=== PATIENT | male | born 1995 | race Hispanic/Latino ===

== ENCOUNTER 2018-07-20 11:52 | Emergency (ER) | payer SELFPAY ==
[2018-07-20] MEDS ORDERED: Proparacaine 0.5% Opth 15 ML BOT ONE (12:07)
[2018-07-20] MEDS ORDERED: Fluorescein Opthalmic Strip ONE ×2 (12:07→12:08)
[2018-07-20] MEDS ORDERED: Adacel (T-DAP) 0.5 ML SYRINGE ONE (12:38)
== END 2018-07-20 13:14 | disposition home or self-care (01) ==
LOC: ERS 11:52
DX: T26.12XA Burn of cornea and conjunctival sac, left eye, initial encounter (principal); T26.11XA Burn of cornea and conjunctival sac, right eye, initial encounter; F17.210 Nicotine dependence, cigarettes, uncomplicated; W22.8XXA Striking against or struck by other objects, initial encounter; Y92.69 Other specified industrial and construction area as the place of occurrence of the external cause
CPT/HCPCS: 90471; 90715